=== PATIENT | female | born 1995 | race Caucasian/White ===

== ENCOUNTER 2024-11-11 20:10 | Emergency (ER) | payer OTHER, SELFPAY ==
[2024-11-11 20:12] VITALS: BP 137/103; PULSE 83; RESP 16; TEMP 36.6; O2SAT 98; BMI 42.4
--- NOTE | 2024-11-11 20:33 | ED.RN ---
1ST ATTEMPT MADE TO CONTACT ON-CALL DRUG SCREENER WITH NO ANSWER.
--- NOTE | 2024-11-11 20:39 | ED.RN ---
[facility], ON-CALL NOTIFIED AT THIS TIME
--- NOTE | 2024-11-11 21:15 | RAD_ITS ---
PROCEDURE: LUMBAR SPINE 2 OR 3 VIEWS 11/11/2024 REASON FOR EXAM: INJURY/PAIN TECHNIQUE: LUMBAR SPINE 2 OR 3 VIEWS COMPARISON: None. FINDINGS: No evidence of acute fracture or dislocation. Vertebral body heights and intervertebral disc spaces are maintained. Normal alignment. RAD/Lumbar Spine 2 or 3 Views IMPRESSION: No acute abnormality. Reading Location: [place] [id number]
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
[2024-11-11 21:54] VITALS: BP 130/78; PULSE 83; RESP 16; TEMP 36.6; O2SAT 98
== END 2024-11-11 21:54 | disposition home or self-care (01) ==
PROVIDERS: Emergency Provider Emergency Medicine; Referring Provider Emergency Medicine; Visit Provider Emergency Medicine
DX: S30.0XXA Contusion of lower back and pelvis, initial encounter (principal); S76.012A Strain of muscle, fascia and tendon of left hip, initial encounter; S90.31XA Contusion of right foot, initial encounter; Z79.899 Other long term (current) drug therapy; Y00.XXXA Assault by blunt object, initial encounter; Y92.512 Supermarket, store or market as the place of occurrence of the external cause; Y99.0 Civilian activity done for income or pay
CPT/HCPCS: 72100; 99283

== ENCOUNTER → 2024-12-05 | Outpatient (CLI) | payer OTHER, SELFPAY | END | disposition home or self-care (01) | LOC: MRI 07:43 | PROVIDERS: PCP Internal Medicine; Referring Provider Physician Assistant; Visit Provider Physician Assistant | DX: M54.50 Low back pain, unspecified (principal); S30.0XXA Contusion of lower back and pelvis, initial encounter | CPT/HCPCS: 72148 ==

== ENCOUNTER 2024-12-23 15:30 | Outpatient (RCR) | payer OTHER, BC, SELFPAY ==
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
--- NOTE | 2024-12-23 17:01 | HP.PTDCSUM ---
Discharge Summary D/C summary: It has been my pleasure to treat YESSICA FERRER referred by MOOKIE Keith, with the diagnosis of Lumbar radiculopathy for a total of 9 visit(s). Discharge Date: 12/23/24 Please see the following information for a summary of their discharge status. Subjective Subjective: Pt. arrives today and reports being 95% better. No pain currently. Pt. reports being released by physician. Pt. is overall doing well. Pt. pleased. Pain Lumbar spine: Pain Intensity (Out of 10): 0 Overall Improvement % Improvement: 95 Objective Objective/Function: Lumbar spine: full motion of increase in symptoms. Pt. has 5/5 strength throughout BLEs. Core strength: fair-. GAIT: normal without issues. Pt. reports she is doing all work related activities without limitations. Pt. is sleeping well. She is doing yoga with good tolerance. Pt. is to add in neutral spine core strengthening x3 per week. Pt. consents. Pt. is feeling much better and will be DC from PT at this point in time. Goals Goal 1:: LTG: Pt. to be I with HEP. Goal Progress: Goal Met Goal 2:: STG: Pt. to sleep without increase in symptoms. Goal Progress: Goal Met Goal 3:: LTG: Pt. to have full ROM of lumbar without increase in symptoms. Goal Progress: Goal Met Goal 4:: LTG: Pt. be able to sit in car without increase in symptoms allowing her to travel from case to case. Goal Progress: Goal Met Goal 5:: LTG: pt. to have no radicular symptoms noted in her L leg. Goal Progress: Goal Met Plan Plan: Pt. has met all goals and is now doing well. Pt. will be DC from PT. D/C Information d/c sentence: If there are questions or concerns regarding this patient's physical therapy, please feel free to call me at [phone]. Thank you for the referral of this patient. Sincerely, Orestes Bush Sipos, DPT Balance/Gait/Functional tests Balance/Special Test Scores Oswestry Low Back Score: 2 Improvement % Improvement: 95
== END 2024-12-23 19:00 | disposition home or self-care (01) ==
LOC: PT 15:30
PROVIDERS: PCP Internal Medicine; Referring Provider Physician Assistant; Visit Provider Physician Assistant
DX: S30.0XXD Contusion of lower back and pelvis, subsequent encounter (principal); S90.31XD Contusion of right foot, subsequent encounter; S76.012D Strain of muscle, fascia and tendon of left hip, subsequent encounter
CPT/HCPCS: 97014; 97110; 97161; 97530; G0283